=== PATIENT | male | born 1955 | race Caucasian/White ===

== ENCOUNTER 2018-11-06 07:54 | Outpatient (CLI) | payer OTHER ==
[2018-11-06] MEDS ORDERED: Gadobenate Dimeglumine 529 MG/1 ML (20ML VIAL) ONE (13:23)
--- NOTE | 2018-11-06 13:40 | MRI ---
MRI PELVIS WITH AND WITHOUT IV CONTRAST: INDICATIONS: A 63-year-old male with elevated PSA with reported history of prostate biopsy one year ago. There is a family history of prostate cancer. There is no reported history of the patient having a diagnosis of prostate cancer. TECHNIQUE: Multiplanar, multisequence MR images were obtained of the pelvis, utilizing a prostate cancer specifi c protocol, and 20 mL of MultiHance was utilized for this examination. The examination was interpret ed utilizing a separate Ancera work station, for a multiparametric evaluation. FINDINGS: The prostate is enlarged, measuring 7.6 x 7.5 x 6.9 cm, giving an estimated prostatic volume of 190.2 4 mL. There are large herniated BPH nodule from the posterior and central aspects of the central gla nd, into the base of the right seminal vesicle. No suspicious area of restricted diffusion is seen w ithin the peripheral zone. No suspicious T2 signal abnormality is seen within the central gland. No abnormal signal abnormality is seen within the anterior fibromuscular stroma. No pathologically enl arged lymph nodes are evident. The visualized aspects of the bladder appear within normal limits. N o bone marrow signal abnormality is demonstrated. No abnormal enhancement is noted. IMPRESSION: PI-RADS category 1-Very low (clinically significant cancer is highly unlikely to be present). POS: [facility]
== END 2018-11-06 07:55 | disposition home or self-care (01) ==
LOC: TBSIIMAG 07:54
PROVIDERS: ATTEND Urology
DX: R97.20 Elevated prostate specific antigen [PSA] (principal)
CPT/HCPCS: 72197; 82565; A9579

== ENCOUNTER 2018-12-28 20:21 | Inpatient (IN) | payer OTHER ==
[2018-12-28 21:24] LABS: #Basophils 0.1 thou/uL (0.0-0.2); #Eosinphils 0.1 thou/uL (0.0-0.7); #Lymphocytes 1.7 thou/uL (1.20-3.40); #Monocytes 0.5 thou/uL (0.11-0.59); #Neutrophils 9.3 thou/uL (1.40-6.50); %Basophils 0.5 % (0.0-1.0); %Eosinophils 0.5 % (0.0-10.0); %Lymphocytes 14.2 % (21.0-51.0); %Monocytes 4.5 % (0.0-10.0); %Neutrophils 80.3 % (42.0-75.0); Hemoglobin 15.6 g/dL (14.0-18.0); Mean Corpuscular HGB CONC 33.3 g/dL (32.0-36.0); Mean Corpuscular Hemoglobin 29.9 pg (27.0-31.0); Mean Corpuscular Volume 89.8 fL (78.0-98.0); Mean Platelet Volume 13.9 fL (7.4-10.4); Platelet Count 207 thou/uL (130-400); Platelet Morphology Comment Appears Adequate; RBC Distribution Width 11.9 % (11.5-14.5); Red Blood Cell (RBC) Count 5.22 mill/uL (4.70-6.10); White Blood Cell (WBC) Count 11.6 thou/uL (4.8-10.8)
[2018-12-28 21:28] LABS: ALT (SGPT) 28 U/L (8-55); AST (SGOT) 20 U/L (5-34); Albumin 4.5 g/dL (3.4-4.8); Alkaline Phosphatase 84 U/L (40-150); Anion Gap 15 mmol/L (10-20); BUN (Urea Nitrogen) 15 mg/dL (8.4-25.7); Bilirubin, Total 0.3 mg/dL (0.2-1.2); CK (CPK) 107 U/L (30-200); Calc. Creatinine Clearance 0 mL/min (70-130); Calcium 9.7 mg/dL (7.8-10.44); Carbon Dioxide 23 mmol/L (23-31); Chloride 104 mmol/L (98-107); Estimated GFR-MDRD 55; Globulin 2.8 g/dL (2.4-3.5); Glucose 169 mg/dL (80-115); Potassium 4.1 mmol/L (3.5-5.1); Protein, Total 7.3 g/dL (5.8-8.1); Sodium 138 mmol/L (136-145)
--- NOTE | 2018-12-28 21:32 | RAD ---
AP VIEW CHEST: 12/28/18 HISTORY: Altered mental status. AP view chest is obtained. The lungs are well aerated. No evidence of active intrathoracic disease seen. No evidence of effusion s, pneumothorax seen. IMPRESSION: Unremarkable AP view chest. POS: [facility]
--- NOTE | 2018-12-28 21:50 | CT ---
CT BRAIN 12/28/18 HISTORY: Altered mental status. History of seizures. Noncontrast enhanced CT images of the brain obtained. Comparison made to previous exam from 11/23/15. Noncontrast enhanced CT images of the brain demonstrate a left occipital craniotomy. Old small area o f infarction or encephalomalacia seen in the inferior left cerebellar hemisphere. No evidence of acute intracranial masses, hemorrhages, strokes or contusions seen. IMPRESSION: No evidence of acute intracranial abnormality seen. POS: [facility]
[2018-12-28] MEDS ORDERED: Lorazepam 2 MG/ML VIAL ONE ×2 (22:23→22:53)
[2018-12-28] MEDS ORDERED: Fosphenytoin Sodium 500 mg/10 ml Vial ONE (22:38)
[2018-12-28] MEDS ORDERED: Ondansetron PF 4 MG/2 ML Vial ONE (22:55)
[2018-12-29 01:37] VITALS: BMI 28.0
[2018-12-29] MEDS ORDERED: Ondansetron PF 4 MG/2 ML Vial IVP PRN (01:53)
[2018-12-29] MEDS ORDERED: Ondansetron ODT 4 MG TAB SL PRN (01:53)
[2018-12-29] MEDS ORDERED: Lorazepam 2 MG/ML VIAL SLOW IVP PRN (01:55)
[2018-12-29] MEDS ORDERED: D5 1/2 NS w/20 mEq KCL 1,000 ML IV SCH (02:00)
[2018-12-29] MEDS ORDERED: Acetaminophen 325 MG TAB PO PRN (02:20)
[2018-12-29] MEDS ORDERED: Acetaminophen 650 MG Suppository PR PRN (02:20)
[2018-12-29] MEDS ORDERED: Sodium Chloride 0.9% 1,000 ML IV SCH (02:30)
[2018-12-29] MEDS: Sodium Chloride 0.9% 1,000 ML IV SCH ×2 (02:47→14:00)
[2018-12-29 03:04] LABS: #Lymphocytes 1.1 thou/uL (1.20-3.40); #Neutrophils 15.2 thou/uL (1.40-6.50); %Basophils 0.1 % (0.0-1.0); %Eosinophils 0.2 % (0.0-10.0); %Lymphocytes 6.6 % (21.0-51.0); %Monocytes 5.5 % (0.0-10.0); %Neutrophils 87.6 % (42.0-75.0); Hemoglobin 15.2 g/dL (14.0-18.0); Mean Corpuscular HGB CONC 33.2 g/dL (32.0-36.0); Mean Corpuscular Hemoglobin 30.9 pg (27.0-31.0); Mean Corpuscular Volume 93.2 fL (78.0-98.0); Mean Platelet Volume 11.1 fL (7.4-10.4); Platelet Count 212 thou/uL (130-400); RBC Distribution Width 11.7 % (11.5-14.5); Red Blood Cell (RBC) Count 4.91 mill/uL (4.70-6.10); White Blood Cell (WBC) Count 17.3 thou/uL (4.8-10.8)
--- NOTE | 2018-12-29 03:28 | HP ---
CHIEF COMPLAINT: Recurrent seizure. HISTORY OF PRESENT ILLNESS: Mr. Kelly is a pleasant 63-year-old man with a history of seizure disorder, who has been seizure-free for the last 2 years, therefore has not been on any antiseizure medications. He was transferred from [facility]. He presented with a grand mal seizure, lasting 8 to 13 minutes, at approximately 7:30pm. CT Head imaging was negative and he was discharged. When driving out of the parking lot he has another tonic-clonic seizure. His quickly brought him back and a state highway police officer helped him out of the car. He was given a loading dose of fosphophenytoin 1,500 mg and given ativan. He had loss of bladder control and did maintain his airway. He has fully recovered but does not recall any events from today. His states he has not been himself since last night. He slept 4 hours and was restless. He was minimally communicative through the day with several episodes of absence seizures. The seizure tonight was significantly longer than he has experienced in the past, which usually lasts 2 to 3 minutes with quick recovery. REVIEW OF SYSTEMS: According to the patient's , he has been under more stress than usual. He also was recently treated for sinus infection after he developed swelling around his left eye on Sunday. He was started on what she believes to be Augmentin on Sunday which he continued until today. He has been afebrile without any chills or night sweats. The swelling has fully improved. Earlier today, she states they were eating at a restaurant when suddenly the alarm went off and there were flashing lights, which she believes may have been a trigger. He has had one episode of vomiting after eating 5 slices of pizza over short period of time, which she believes was during the moment he was experiencing absent seizures. He has had no further vomiting. He denies having any abdominal pain or cramping. He has, otherwise, been in his usual state of health. Denies any urinary symptoms. No recent changes with his bowels. All other review of systems are negative. PAST MEDICAL HISTORY: 1. Seizure disorder. 2. Cerebrovascular disease. 3. Hyperlipidemia. PAST SURGICAL HISTORY: Benign brain tumor removed more than 2 decades ago. SOCIAL HISTORY: No alcohol use. No tobacco use or illicit drug use. FAMILY HISTORY: His mother has hypertension. Otherwise, no family history. ALLERGIES: NO KNOWN DRUG ALLERGIES. CURRENT MEDICATIONS: 1. Recently completed a course of antibiotics, believed to be Augmentin. 2. Aspirin 81 mg p.o. daily. 3. Simvastatin 20 mg p.o. at bedtime. 4. Flomax 0.4 mg p.o. daily. PHYSICAL EXAMINATION: GENERAL: The patient appears well developed, well nourished, and is in no acute distress. VITAL SIGNS: Temperature 98.5, pulse 69, respirations 18, O2 saturation 96% on room air, blood pressure 157/84. HEENT: Normocephalic and atraumatic. Pupils are equal, round, and reactive to light. Extraocular movements intact with no nystagmus. NECK: Supple without lymphadenopathy. LUNGS: Clear to auscultation bilaterally without wheezes, rales, or rhonchi. CARDIAC: Regular rate and rhythm. ABDOMEN: Soft, nontender, and nondistended. Normoactive bowel sounds present. EXTREMITIES: No clubbing, cyanosis, or edema. NEUROLOGIC: Alert and oriented x3. Power 5/5 in all limbs. No reduced sensation or paresthesias. No neuro deficits. SKIN: Without rash or jaundice. LABORATORY DATA: White blood count 11.6, hemoglobin 15.6, hematocrit 46.8, platelets 207. Sodium 138, potassium 4.1, anion gap 15, BUN 15, creatinine 1.31 , GFR 55, glucose 169, calcium 9.7, total bilirubin 0.3. LFTs unremarkable. CK 107. IMAGING DATA: Chest x-ray is unremarkable. CT of the brain showed no acute changes. IMPRESSION AND PLAN: Mr. Kelly is a pleasant 63-year-old man who is being admitted for management of the following; 1. Recurrent seizure. The patient has not experienced a grand mal seizure for approximately 2 years and is not on any antiseizure medications at this time. The seizure today lasted approximately 8 to 13 minutes, which is longer than usual and was preceded by multiple absence seizures throughout the day. No signs of any underlying infection. CT imaging of the brain was negative. We have requested a Neurology consult. He did receive a loading dose of fosphenytoin and we will continue fosphenytoin 200 mg twice daily. 2. Leukocytosis. White count was elevated at 12.5 today. This could be reactive from the seizure. He was recently treated for sinus infection. We will monitor his white cell count. We will obtain urinalysis and add a procalcitonin level. 3. Hypercholesterolemia. Resume home medications. 4. Gastrointestinal prophylaxis. 5. Venous thromboembolism prophylaxis with mechanical sequential compression devices. 6. Full code status. His surrogate decision maker is his . The patient's case was discussed with Dr. Piper, who agrees with plan of care as described above. Job ID: [id number] MTDD
[2018-12-29 03:30] LABS: ALT (SGPT) 25 U/L (8-55); AST (SGOT) 25 U/L (5-34); Albumin 4.3 g/dL (3.4-4.8); Alkaline Phosphatase 77 U/L (40-150); Anion Gap 16 mmol/L (10-20); BUN (Urea Nitrogen) 16 mg/dL (8.4-25.7); Bilirubin, Total 0.4 mg/dL (0.2-1.2); Calc. Creatinine Clearance 89 mL/min (70-130); Calcium 9.5 mg/dL (7.8-10.44); Carbon Dioxide 21 mmol/L (23-31); Chloride 106 mmol/L (98-107); Estimated GFR-MDRD 64; Globulin 2.8 g/dL (2.4-3.5); Glucose 113 mg/dL (80-115); Potassium 4.1 mmol/L (3.5-5.1); Protein, Total 7.1 g/dL (5.8-8.1); Sodium 139 mmol/L (136-145)
[2018-12-29 08:06] LABS: Amphetamine Not Detected (NotDetected); Barbiturates Screen Detected (NotDetected); Benzodiazepine Screen Detected (NotDetected); Cocaine Metabolite Screen Not Detected (NotDetected); Medtox Control Line Valid? VALID (VALID); Medtox Reader # READER 1; Methadone Not Detected (NotDetected); Methamphetamine Not Detected (NotDetected); Opiate Screen Not Detected (NotDetected); Oxycodone Screen Not Detected (NotDetected); Phencyclidine (PCP) Not Detected (NotDetected); THC/Cannabinoid Screen Not Detected (NotDetected); Tricyclic Screen Not Detected (NotDetected)
[2018-12-29] MEDS ORDERED: Tamsulosin HCl 0.4 MG CAP PO SCH (09:00)
[2018-12-29] MEDS ORDERED: Famotidine/PF 20 mg/2ml Vial SLOW IVP SCH (09:00)
[2018-12-29] MEDS ORDERED: Aspirin 81 mg Enteric Coated Tablet PO SCH (09:00)
[2018-12-29] MEDS ORDERED: Fosphenytoin Sodium 200 MG in Sodium Chloride 0.9% 50 ML IVPB SCH (09:00)
[2018-12-29 10:22] LABS: Bilirubin Negative (Negative); Blood, Urine Negative (Negative); Clarity TURBID (Clear); Glucose, Urine (Dipstick) Negative (Negative); Leukocyte Negative (Negative); Nitrite Negative (Negative); Protein, Urine (Dipstick) Negative (Neg-Trace); Specific Gravity, Urine 1.021 (1.002-1.036); Urobilinogen 0.2 mg/dL (0.2-1.0)
[2018-12-29 10:24] LABS: Bacteria/HPF None Seen HPF (None Seen); Hyaline Casts/LPF 0-3 HYALINE CAST LPF (0-3 Hyaline); RBC/HPF None Seen HPF (0-3); Squamous Epithelial None Seen HPF (0-3); WBC/HPF None Seen HPF (0-3)
[2018-12-29] MEDS ORDERED: levETIRAcetam 500 MG TAB PO SCH ×2 (10:30→21:00)
--- NOTE | 2018-12-29 12:21 | PDOC.EVN ---
Event Note - Event Note Event Note: pt seen and examined. feelw well and wants to g home.no more seizure activity.no confusion started on keppra by neurology DC later today if seizure free w OP f/u
--- NOTE | 2018-12-29 12:42 | CON ---
DATE OF CONSULTATION: 12/28/2018 CONSULTING PHYSICIAN: Hospitalist Services. IMPRESSION: Recurrent generalized tonic-clonic seizure, which have been rare for many years. PLAN: 1. Keppra 500 mg twice a day. 2. Office followup. HISTORY OF PRESENT ILLNESS: Mr. Kelly is a 63-year-old man with a history of primary generalized seizures dating back to 2005. He was evaluated by me at that time and had a complete workup. 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 He was treated with Depakote in the past, but did not like the way he felt that slowed him down physically and he had more trouble playing tennis. He discontinued the medication. He had a second grand mal seizure in 2016. He usually has ervin mal seizures prior to the development of a generalized seizures. They have been provoked by dehydration and sleep deprivation. He had 2 generalized tonic-clonic seizures yesterday. He attributes this to sleep deprivation. He was seen in the emergency room. He had a loading dose of fosphenytoin 1500 mg given. He has had a CT scan of the brain, which was normal. He feels fine now other than some soreness of his right hand. PAST MEDICAL HISTORY: Otherwise negative. ALLERGIES: NONE. SOCIAL HISTORY: He drinks alcohol socially. Does not use any tobacco. FAMILY HISTORY: Unremarkable. MEDICATIONS: None. REVIEW OF SYSTEMS: A 10-system review of systems otherwise unremarkable. PHYSICAL EXAMINATION: GENERAL: He is a healthy-appearing middle-aged man, in no acute distress. VITAL SIGNS: Vital signs have been stable. He is afebrile. HEENT: Pupils are equal and reactive. Conjunctivae clear. Oropharynx clear. EXTREMITIES: No cyanosis, clubbing, or edema. NECK: Supple. NEUROLOGIC: He is alert and appropriate. His exam is nonfocal. LABORATORY DATA: Laboratory studies were unremarkable. SUMMARY: This is a 63-year-old gentleman with a history of rare generalized tonoclonic seizures. He is willing to try a different anticonvulsant to see if he will prevent further events. I will be happy to follow up with him as an outpatient. Job ID: [id number]
[2018-12-29 15:36] VITALS: BP 123/66; TEMP 99.6
[2018-12-29] MEDS ORDERED: Simvastatin 20 MG TAB PO SCH (21:00)
--- NOTE | 2018-12-30 04:01 | DIS ---
DATE OF ADMISSION: 12/28/2018 DATE OF DISCHARGE: 12/29/2018 DISCHARGE DIAGNOSES: 1. Breakthrough seizures, now well controlled. 2. History of seizure disorder. 3. Cerebrovascular accident. 4. Dyslipidemia. DISCHARGE MEDICATIONS: 1. Keppra 500 p.o. b.i.d. 2. Simvastatin 20 mg daily. 3. Flomax 0.4 mg daily. 4. Aspirin 81 mg daily. IN-HOUSE CONSULTATION: Neurology, Dr. Turner. PROCEDURES DONE IN THE HOSPITAL: CT scan of the brain, which is unremarkable for any acute changes. HISTORY OF PRESENTING ILLNESS: Mr. Kelly is a 63-year-old male with known history of seizure, who has not had a seizure in many years and does not take any medication, presented after having a few episodes of grand mal seizures preceded by small episodes of absence seizures. His CT scan was unremarkable. He was loaded with fosphenytoin and was started on IV fosphenytoin and was admitted to stroke floor for further workup. HOSPITAL COURSE: The patient recovered pretty quickly and was not postictal by the time I have seen the patient. Neurology was consulted. Dr. Turner saw the patient and started him on Keppra. The patient is symptom free and is eager to go home and has been cleared by Neurology, so he will be discharged on Keppra p.o. b.i.d. as above. He will follow up with primary care physician and Dr. Turner in the outpatient setting. PHYSICAL EXAMINATION: I have seen and examined the patient before discharge. VITAL SIGNS: His vital signs are stable. Blood pressure 139/73, temperature 99.1, heart rate 69, respirations 16, and saturating 98% on room air. GENERAL: Awake, alert, and oriented x3. is at bedside. CHEST: Clear to auscultation bilaterally. HEART: Rate and rhythm are regular. NEUROLOGIC: Nonfocal. Urine drug screen positive for barbiturates and benzodiazepines, otherwise unremarkable. Serum chemistries within normal limit. Job ID: [id number]
== END 2018-12-29 18:19 | disposition home or self-care (01) | DRG 101 ==
LOC: SCSER 20:21 → ERHOLD 23:00 → 2SE 12-29 01:03
PROVIDERS: ADMIT Hospitalist; ATTEND Hospitalist
DX: G40.909 Epilepsy, unspecified, not intractable, without status epilepticus (principal); E78.5 Hyperlipidemia, unspecified; E78.00 Pure hypercholesterolemia, unspecified
CPT/HCPCS: 36415; 36416; 70450; 71045; 80053; 80164; 80185; 80306; 81001; 82550; 83735; 84145; 84146; 84443; 85025; J2060; J2405; J7050; Q2009; S0028

== ENCOUNTER 2019-11-05 07:59 | Outpatient (CLI) | payer MEDICARE, BC ==
--- NOTE | 2019-11-05 14:01 | MRI ---
MRI PELVIS WITH AND WITHOUT IV CONTRAST UTILIZING PROSTATE CANCER SPECIFIC PROTOCOL: INDICATIONS: Elevated PSA. Yearly follow-up examination. COMPARISON: Prior MRI pelvis with and without contrast dated 11/06/2018. TECHNIQUE: Multiplanar, multisequence MR images were obtained of the pelvis utilizing prostate cancer specific p rotocol and 20 mL of MultiHance was utilized for the examination. The images were interpreted on a USB [employer] work station for multiparametric evaluation. FINDINGS: The prostate gland measures 7.9 x 7.8 x 7.4 cm, giving an estimated total prostatic volume of 214.96 mL. This is slightly larger than on the prior examination, where the prostatic volume was 190.24 mL. There is a large herniated BPH nodule into the posterior and central aspect of the prostate gland, pr otruding into the base of the right seminal vesicle. No suspicious lesion is seen within the peripher al zone on the diffusion weighted or ADC images. No suspicious T2 lesion is seen within the central z one. No area of abnormal dynamic contrast enhancement is grossly evident. No enlarged lymph nodes are present. No free fluid is identified. No suspicious bone marrow signal abnormality is grossly eviden t. IMPRESSION: PI-RADS category 1 - Very low (clinically significant cancer is highly unlikely to be present). POS: [facility]
[2019-11-05] MEDS ORDERED: Magnevist 469MG/ML 20 ML VIAL ONE (15:10)
== END 2019-11-05 08:00 | disposition home or self-care (01) ==
LOC: TBSIIMAG 07:59
PROVIDERS: ATTEND Urology
DX: R97.20 Elevated prostate specific antigen [PSA] (principal)
CPT/HCPCS: 72197; 82565; A9579

== ENCOUNTER 2020-08-25 13:41 | Outpatient (CLI) | payer MEDICARE, BC ==
[~2020-08-25 13:41] MED LIST: Magnevist 469MG/ML 20 ML VIAL ONE
--- NOTE | 2020-08-25 16:00 | MRI ---
Exam: Brain MRI with and without contrast HISTORY: Seizures. Patient is taking seizure medication. COMPARISON: 11/24/2015 FINDINGS: Gradient echo sequence: No hemorrhage Calvarium: Appropriate T1 marrow signal intensity. Stable resection of the left occipital calvarium. Midline brain parenchyma: Unremarkable Cerebrum:No parenchymal mass, mass effect or midline shift. Brain volume is age-appropriate. Cortical guardado-white matter differentiation served. No significant T2 or FLAIR white matter hyperintensities. Occasional hyperintensity likely due to chronic small vessel ischemic change. Stabl e volume loss in the left cerebellar hemispheres due to encephalomalacia. No evidence of mesial temporal sclerosis. Ventricles: No evidence of hydrocephalus. Sinuses and mastoid air cells: Adequate aeration Diffusion: Central arterial flow is maintained. Absent restricted diffusion. Postcontrast images: No pathologic enhancement of the brain parenchyma. IMPRESSION: 1. No acute intracranial process. 2. Stable encephalomalacia in the left cerebellar hemisphere. Stable postoperative changes. 3. No evidence of mesial temporal sclerosis.
== END 2020-08-25 13:42 | disposition home or self-care (01) ==
LOC: TBSIIMAG 13:41
PROVIDERS: ATTEND Nurse Practitioner Acute Care
DX: G40.309 Generalized idiopathic epilepsy and epileptic syndromes, not intractable, without status epilepticus (principal); G93.89 Other specified disorders of brain; Z98.890 Other specified postprocedural states
CPT/HCPCS: 70553; 82565; A9579

== ENCOUNTER 2021-07-09 19:00 | Outpatient (CLI) | payer MEDICARE, BC | END 2021-07-09 19:01 | disposition home or self-care (01) | LOC: SLEEPLAB 19:00 | PROVIDERS: ATTEND Otolaryngology Plastic Surgery within the Head & Neck | DX: G47.33 Obstructive sleep apnea (adult) (pediatric) (principal); R06.83 Snoring; K21.9 Gastro-esophageal reflux disease without esophagitis | CPT/HCPCS: 95810 ==

== ENCOUNTER 2021-10-13 07:37 | Outpatient (CLI) | payer MEDICARE, BC | END 2021-10-13 07:38 | disposition home or self-care (01) | LOC: SCSMRI 07:37 | PROVIDERS: ATTEND Family Medicine | DX: R29.898 Other symptoms and signs involving the musculoskeletal system (principal); M47.812 Spondylosis without myelopathy or radiculopathy, cervical region | CPT/HCPCS: 72141 ==

== ENCOUNTER 2021-11-07 08:29 | Outpatient (CLI) | payer MEDICARE, BC ==
[2021-11-07] MEDS ORDERED: Magnevist 469MG/ML 20 ML VIAL ONE (09:44)
== END 2021-11-07 08:30 | disposition home or self-care (01) ==
LOC: TBSIIMAG 08:29
PROVIDERS: ATTEND Neurological Surgery
DX: H49.01 Third [oculomotor] nerve palsy, right eye (principal); I25.2 Old myocardial infarction
CPT/HCPCS: 70553; 82565

== ENCOUNTER 2023-10-04 12:02 | Outpatient (CLI) | payer MEDICARE, BC ==
[2023-10-04 15:45] LABS: Bilirubin Neg (Negative); Blood, Urine Negative (Negative); Clarity Clear (Clear); Glucose, Urine (Dipstick) Normal (Negative); Ketone, Urine Negative (Negative); Leukocyte Negative (Negative); Nitrite Negative (Negative); Protein, Urine (Dipstick) 15 mg/dl (Neg-Trace); Specific Gravity, Urine 1.015 (1.005-1.030); Urobilinogen Normal mg/dL (Less than 2)
[2023-10-04 15:45] LABS: Hematocrit 43.9 % (38.8-50.0); Mean Corpuscular HGB CONC 34.2 g/dL (32.0-36.0); Mean Corpuscular Hemoglobin 30.9 pg (27.0-33.0); Mean Corpuscular Volume 90.5 fl (81.2-95.1); Mean Platelet Volume 13.3 fl (7.4-10.4); Platelet Count 216 10x3/uL (150-450); RBC Distribution Width 12.5 % (11.5-14.5); Red Blood Cell (RBC) Count 4.85 10x6/uL (4.32-5.72); White Blood Cell (WBC) Count 7.4 10x3/uL (3.5-10.5)
[2023-10-04 16:02] LABS: Anion Gap 14 mmol/L (10-20); BUN (Urea Nitrogen) 15 mg/dL (8.4-25.7); Calc. Creatinine Clearance 0 mL/min (70-130); Calcium 9.4 mg/dL (7.8-10.44); Carbon Dioxide 25 mmol/L (23-31); Chloride 104 mmol/L (98-107); Estimated GFR 76; Glucose 107 mg/dL (80-115); Potassium 4.4 mmol/L (3.5-5.1); Sodium 139 mmol/L (136-145)
[2023-10-04 16:20] LABS: PTT 29.7 sec (22.0-33.0); Prothrombin Time 10.3 sec (9.5-12.1)
[2023-10-04 16:48] LABS: RBC/HPF None Seen HPF (0-3); Squamous Epithelial 0-3 HPF (0-3); WBC/HPF None Seen HPF (0-3)
[2023-10-04 16:49] LABS: Bacteria/HPF None Seen HPF (None Seen); Sperm/HPF Rare HPF (None Seen)
== END 2023-10-04 12:03 | disposition home or self-care (01) ==
LOC: LABBT 12:02
PROVIDERS: ATTEND Urology
DX: Z01.818 Encounter for other preprocedural examination (principal); R31.0 Gross hematuria; R97.20 Elevated prostate specific antigen [PSA]; N52.01 Erectile dysfunction due to arterial insufficiency; Z80.42 Family history of malignant neoplasm of prostate
CPT/HCPCS: 71046; 80048; 81001; 85027; 85610; 85730; 87086; 93005; 93010

== ENCOUNTER 2023-11-16 14:29 | Outpatient (CLI) | payer MEDICARE, BC ==
[2023-11-16 15:13] LABS: Bilirubin Neg (Negative); Blood, Urine Negative (Negative); Clarity Clear (Clear); Glucose, Urine (Dipstick) Normal (Negative); Ketone, Urine Negative (Negative); Leukocyte Negative (Negative); Nitrite Negative (Negative); Protein, Urine (Dipstick) 15 mg/dl (Neg-Trace); Urobilinogen Normal mg/dL (Less than 2)
[2023-11-16 15:58] LABS: Anion Gap 17 mmol/L (10-20); BUN (Urea Nitrogen) 15 mg/dL (8.4-25.7); Calc. Creatinine Clearance 0 mL/min (70-130); Calcium 9.8 mg/dL (7.8-10.44); Carbon Dioxide 26 mmol/L (23-31); Chloride 102 mmol/L (98-107); Estimated GFR 79; Glucose 133 mg/dL (80-115); Potassium 4.9 mmol/L (3.5-5.1); Sodium 140 mmol/L (136-145)
[2023-11-16 15:59] LABS: Hematocrit 43.1 % (38.8-50.0); Hemoglobin 15.1 g/dL (13.5-17.5); Mean Corpuscular Hemoglobin 30.8 pg (27.0-33.0); Platelet Count 206 10x3/uL (150-450); RBC Distribution Width 12.4 % (11.5-14.5); White Blood Cell (WBC) Count 7.9 10x3/uL (3.5-10.5)
[2023-11-16 16:00] LABS: INR-International Normal Ratio 0.9; PTT 28.9 sec (22.0-33.0); Prothrombin Time 10.1 sec (9.5-12.1)
[2023-11-16 16:01] LABS: Bacteria/HPF 1+ HPF (None Seen); RBC/HPF 0-3 HPF (0-3); Squamous Epithelial 0-3 HPF (0-3); WBC/HPF 0-3 HPF (0-3)
== END 2023-11-16 14:30 | disposition home or self-care (01) ==
LOC: LABBT 14:29
PROVIDERS: ATTEND Urology
DX: Z01.812 Encounter for preprocedural laboratory examination (principal); N40.1 Benign prostatic hyperplasia with lower urinary tract symptoms; N13.8 Other obstructive and reflux uropathy; N52.01 Erectile dysfunction due to arterial insufficiency; R31.0 Gross hematuria; R97.20 Elevated prostate specific antigen [PSA]; Z80.42 Family history of malignant neoplasm of prostate
CPT/HCPCS: 80048; 81001; 85027; 85610; 85730; 87086

== ENCOUNTER 2023-11-23 08:22 | Day surgery (SDC) | payer MEDICARE, BC ==
[2023-11-16 14:53] VITALS: BMI 29.0
[2023-11-23] MEDS ORDERED: Lidocaine 1% PF 5 ML VIAL ONE (10:38)
[2023-11-23] MEDS ORDERED: Ondansetron PF 4 MG/2 ML Vial ONE (10:38)
[2023-11-23] MEDS ORDERED: PROPOFOL 20 ML ONE ×3 (10:38→11:58)
[2023-11-23] MEDS ORDERED: Sodium Chloride 0.9% 100 ML ONE (11:16)
[2023-11-23] MEDS ORDERED: cefTRIAXone (ROCEPHIN) 1 GM VIAL ONE (11:16)
[2023-11-23] MEDS ORDERED: fentaNYL 50 mcg/mL 1 mL Vial ONE (11:38)
[2023-11-23] MEDS ORDERED: Ketorolac Tromethamine 30 MG (1 mL) VIAL ONE (15:23)
== END 2023-11-23 16:38 | disposition home or self-care (01) ==
LOC: SDC 08:22
PROVIDERS: ATTEND Urology
PROC: 0VB03ZX Excision of Prostate, Percutaneous Approach, Diagnostic (ICD-10-PCS; principal; 2023-11-23)
DX: C61 Malignant neoplasm of prostate (principal)
CPT/HCPCS: 55700; J3010; G0416; J0696; J1885; J2405; J2704; J3490

== ENCOUNTER 2024-11-17 13:10 | Outpatient (CLI) | payer MEDICARE, BC ==
[2024-11-17 14:48] LABS: Anion Gap 11 mmol/L (10-20); BUN (Urea Nitrogen) 12 mg/dL (8.4-25.7); Calc. Creatinine Clearance 0 mL/min (70-130); Calcium 9.4 mg/dL (7.8-10.44); Carbon Dioxide 27 mmol/L (23-31); Chloride 104 mmol/L (98-107); Estimated GFR 77; Glucose 123 mg/dL (80-115); Potassium 4.2 mmol/L (3.5-5.1); Sodium 138 mmol/L (136-145)
[2024-11-17 14:49] LABS: #Basophils 0.03 10x3/uL (0.0-0.2); %Basophils 0.4 % (0.0-1.0); %Eosinophils 0.8 % (0.0-10.0); %Lymphocytes 24.3 % (21.0-51.0); %Monocytes 7.3 % (0.0-10.0); Hemoglobin 15.6 g/dL (14.0-18.0); Mean Corpuscular HGB CONC 33.9 g/dL (32.0-36.0); Mean Corpuscular Hemoglobin 30.3 pg (27.0-31.0); Mean Corpuscular Volume 89.3 fL (78.0-98.0); Platelet Count 204 10x3/uL (130-400); RBC Distribution Width 12.4 % (11.5-14.5); Red Blood Cell (RBC) Count 5.15 mill/uL (4.70-6.10)
[2024-11-17 14:50] LABS: Prothrombin Time 12.6 sec (12.0-14.7)
[2024-11-17 14:51] LABS: PTT 29.6 sec (22.9-36.1)
[2024-11-17 15:20] LABS: Bacteria/HPF None Seen HPF (None Seen); Bilirubin Negative (Negative); Blood, Urine Negative (Negative); Clarity Clear (Clear); Glucose, Urine (Dipstick) Normal (Negative); Ketone, Urine Negative (Negative); Leukocyte Negative Leu/uL (Negative); Nitrite Negative (Negative); Protein, Urine (Dipstick) 30 mg/dL (Neg-Trace); RBC/HPF 0-3 HPF (0-3); Specific Gravity, Urine 1.015 (1.002-1.036); Squamous Epithelial None Seen HPF (0-3); Urobilinogen Normal mg/dL (Less than 2); WBC/HPF 0-3 HPF (0-3); pH, Urine 6.5 (5.0-9.0)
== END 2024-11-17 13:11 | disposition home or self-care (01) ==
LOC: LABBT 13:10
PROVIDERS: ATTEND Urology
DX: Z01.818 Encounter for other preprocedural examination (principal); C61 Malignant neoplasm of prostate; N40.1 Benign prostatic hyperplasia with lower urinary tract symptoms; G40.309 Generalized idiopathic epilepsy and epileptic syndromes, not intractable, without status epilepticus; I63.9 Cerebral infarction, unspecified; N52.01 Erectile dysfunction due to arterial insufficiency
CPT/HCPCS: 80048; 81001; 85025; 85610; 85730; 87086

== ENCOUNTER 2024-11-27 06:22 | Inpatient (IN) | payer MEDICARE, BC ==
[2024-11-27] MEDS ORDERED: LevoFLOXacin D5W 500 mg (100 mL) BAG ONE (06:41)
[2024-11-27] MEDS ORDERED: fentaNYL PF 100 MCG/2 ML SYRINGE ONE (06:43)
[2024-11-27] MEDS ORDERED: PROPOFOL 20 ML ONE (06:43)
[2024-11-27] MEDS ORDERED: Ondansetron PF 4 MG/2 ML Vial ONE (06:44)
[2024-11-27] MEDS ORDERED: Lidocaine 1% PF 5 ML VIAL ONE (06:44)
[2024-11-27] MEDS ORDERED: Dexamethasone 20 MG/5 ML VIAL ONE (06:44)
[2024-11-27] MEDS ORDERED: Lidocaine 2% 6 ML (Jelly) SYR ONE (06:45)
[2024-11-27] MEDS ORDERED: Sevoflurane 250 ML INH ANEST BOTTLE ONE (07:44)
[2024-11-27] MEDS ORDERED: ePHEDrine Sulfate 50 MG/10 ML VIAL ONE (08:18)
[2024-11-27] MEDS ORDERED: Phenazopyridine HCl 100 MG TAB ONE (09:38)
[2024-11-27] MEDS ORDERED: Oxybutynin 5 MG TAB ONE (09:39)
[2024-11-27] MEDS ORDERED: fentaNYL 50 mcg/mL 1 mL Vial ONE ×2 (09:43→09:54)
[2024-11-27] MEDS ORDERED: hydrALAZINE 20 MG/ML VIAL SLOW IVP PRN (15:25)
[2024-11-27] MEDS ORDERED: Bisacodyl 10 MG SUPP PR PRN (15:25)
[2024-11-27] MEDS ORDERED: diphenhydrAMINE 25 MG CAP PO PRN (15:25)
[2024-11-27] MEDS ORDERED: Acetaminophen 500 MG TAB PO PRN (15:25)
[2024-11-27] MEDS ORDERED: Morphine 2 MG/ML VIAL SLOW IVP PRN (15:25)
[2024-11-27] MEDS ORDERED: Hyoscyamine SL 0.125 MG TAB SL PRN (15:25)
[2024-11-27] MEDS ORDERED: Ondansetron PF 4 MG/2 ML Vial IVP PRN (15:25)
[2024-11-27] MEDS ORDERED: traMADol HCl 50 MG TAB PO PRN (15:27)
[2024-11-27 17:52] VITALS: BMI 30.2
[2024-11-27] MEDS: Docusate 100 MG CAP PO SCH (20:03)
[2024-11-27] MEDS: levETIRAcetam 500 MG TAB PO SCH (20:03)
[2024-11-27] MEDS: AMOXicillin 250 MG CAP PO SCH (20:03)
[2024-11-28 05:07] LABS: #Basophils Less than 0.03 10x3/uL (0.0-0.2); #Eosinophils Less than 0.03 10x3/uL (0.0-0.7); %Basophils 0.1 % (0.0-1.0); %Eosinophils 0.1 % (0.0-10.0); %Lymphocytes 8.6 % (21.0-51.0); %Monocytes 7.4 % (0.0-10.0); %Neutrophils 83.1 % (42.0-75.0); Hematocrit 38.9 % (42.0-52.0); Hemoglobin 13.2 g/dL (14.0-18.0); Mean Corpuscular HGB CONC 33.9 g/dL (32.0-36.0); Mean Corpuscular Hemoglobin 30.3 pg (27.0-31.0); Mean Corpuscular Volume 89.4 fL (78.0-98.0); Mean Platelet Volume 13.2 fL (7.4-10.4); Platelet Count 228 10x3/uL (130-400); RBC Distribution Width 12.5 % (11.5-14.5); Red Blood Cell (RBC) Count 4.35 mill/uL (4.70-6.10)
[2024-11-28 05:30] LABS: Anion Gap 13 mmol/L (10-20); BUN (Urea Nitrogen) 22 mg/dL (8.4-25.7); Calc. Creatinine Clearance 86 mL/min (70-130); Calcium 8.9 mg/dL (7.8-10.44); Carbon Dioxide 23 mmol/L (23-31); Chloride 105 mmol/L (98-107); Estimated GFR 66; Glucose 147 mg/dL (80-115); Potassium 4.7 mmol/L (3.5-5.1); Sodium 136 mmol/L (136-145)
[2024-11-28] MEDS: AMOXicillin 250 MG CAP PO SCH (20:24)
[2024-11-29 04:54] LABS: Hematocrit 37.6 % (42.0-52.0); Hemoglobin 12.6 g/dL (14.0-18.0); Mean Corpuscular HGB CONC 33.5 g/dL (32.0-36.0); Mean Corpuscular Hemoglobin 30.3 pg (27.0-31.0); Mean Corpuscular Volume 90.4 fL (78.0-98.0); Platelet Count 197 10x3/uL (130-400); RBC Distribution Width 12.9 % (11.5-14.5); Red Blood Cell (RBC) Count 4.16 mill/uL (4.70-6.10)
[2024-11-29 05:20] LABS: Anion Gap 13 mmol/L (10-20); BUN (Urea Nitrogen) 17 mg/dL (8.4-25.7); Calc. Creatinine Clearance 89 mL/min (70-130); Calcium 8.7 mg/dL (7.8-10.44); Carbon Dioxide 25 mmol/L (23-31); Chloride 104 mmol/L (98-107); Estimated GFR 69; Glucose 103 mg/dL (80-115); Potassium 4.5 mmol/L (3.5-5.1); Sodium 137 mmol/L (136-145)
[2024-11-29 07:47] VITALS: TEMP 97.7
[2024-11-29 11:35] VITALS: BP 128/69
[2024-11-29] MEDS: Oxybutynin 5 MG TAB PO PRN (14:22)
== END 2024-11-29 15:15 | disposition home or self-care (01) | DRG 714 ==
LOC: SDC 06:22 → INTOOBSV 17:34 → SURG B 17:34 → OBSVTOIN 11-28 13:00
PROVIDERS: ADMIT Urology; ATTEND Urology
PROC: 0VT08ZZ Resection of Prostate, Via Natural or Artificial Opening Endoscopic (ICD-10-PCS; principal; 2024-11-27)
DX: N40.1 Benign prostatic hyperplasia with lower urinary tract symptoms (principal); R31.9 Hematuria, unspecified
CPT/HCPCS: 36415; 80048; 85025; 85027; 88305; A4333; J1100; J1956; J2405; J2704; J3010